=== PATIENT | male | born 1975 | race Caucasian/White ===

== ENCOUNTER → 2017-10-14 | Outpatient (CLI) | payer OTHER ==
[~2017-10-14] MED LIST: IOPAMIDOL 300MG/ML 100 ML INFUS..BTL IV ONE; IOPAMIDOL 370 MG/ML 200 ML INFUS..BTL INJ ONE; SODIUM CHLORIDE 0.9% 50ML 50 ML ONE
--- NOTE | 2017-10-14 17:35 | Diagnostic Imaging Report ---
PROCEDURE: CT scan of the chest WITH intravenous contrast, using PE protocol. TECHNIQUE: The chest was scanned utilizing a multidetector helical scanner from the lung apex through the level of the adrenal glands after the IV administration of 67 cc of Isovue 370. Coronal and sagittal multiplanar reformations were obtained. COMPARISON: None. INDICATIONS: Dyspnea FINDINGS: Exam limited by patient's large body habitus and suboptimal contrast bolus timing. Lines/tubes: None. Lungs and Airways: No filling defects in the main, right or left pulmonary arteries to their first order branches to suggest pulmonary embolism. Unable to assess more distal segmental branches. Linear opacities in the posterior left lower lobe (best seen on coronal image 103 and series 3, image 64) likely represent subsegmental atelectasis or scarring. No pulmonary nodules, masses, opacities or consolidation. Airways are clear, without endobronchial lesions. Pleura: No effusion, or pneumothorax. Heart and mediastinum: Thyroid is unremarkable. Heart size is normal. No pericardial effusion. Aorta is non-aneurysmal. Main pulmonary artery is normal in caliber, measuring 2.9 cm. Lymph nodes: No mediastinal, hilar, or axillary adenopathy. Abdomen: Limited contrast-enhanced views of the upper abdomen show diffusely decreased attenuation of the visualized liver, consistent with steatosis. Visualized spleen, pancreas, and kidneys are unremarkable. The adrenal glands are unremarkable. Bones: No aggressive lytic lesions. Plate and screw construct in the left lateral aspect of T8-T10. Soft tissues are unremarkable. IMPRESSION: 1. Limited exam, as described above. No filling defects in the main, right or left pulmonary arteries to their first order branches to suggest pulmonary embolism. 2. Subsegmental atelectasis versus scarring in the posterior left lower lobe. The lungs are otherwise clear. 3. Diffuse hepatic steatosis. Montrell Robin M.D. Dictated by: Montrell Robin M.D. on 10/14/2017 at 17:39 Electronically approved by: Montrell Robin M.D. on 10/14/2017 at 17:39
== END ==
LOC: RAD 14:20
PROVIDERS: ATTEND Family Medicine
DX: R06.00 Dyspnea, unspecified (principal); M79.604 Pain in right leg
CPT/HCPCS: 71260; 93971; Q9967

== ENCOUNTER → 2017-10-19 | Outpatient (CLI) | payer OTHER ==
--- NOTE | 2017-10-19 19:53 | Diagnostic Imaging Report ---
EXAMINATION: MRI of the lumbar spine without contrast HISTORY: Worsening low back pain radiating along the front of the right lower extremity for the last 6 months with numbness and weakness COMPARISON: None. TECHNIQUE: Sagittal T1, T2, STIR; axial T2 and proton density. FINDINGS: It is assumed that there are 5 lumbar vertebrae. Curvature/Alignment: Normal lordosis. Vertebrae: No evidence of recent fracture, infection, or neoplasm. Conus: Normal, terminating at L2 Cauda equina: Unremarkable. Lower thoracic: Mild disc bulge at T11-T12 and T12-L1 without significant stenoses. Paraspinal soft tissues: Unremarkable. Degenerative changes: No significant pulmonary disc herniations, spinal canal or foraminal stenosis. IMPRESSION: No significant degenerative changes of the lumbar spine, no disc herniations, no spinal canal or foraminal stenoses. No evidence of nerve root compression. Signed by: Dr. Radha Slaughter M.D. on 10/19/2017 7:50 PM
== END ==
LOC: MRI 14:52
PROVIDERS: ATTEND Family Medicine
DX: M79.604 Pain in right leg (principal); M54.5 Low back pain; M51.36 Other intervertebral disc degeneration, lumbar region; R20.9 Unspecified disturbances of skin sensation; M62.89 Other specified disorders of muscle
CPT/HCPCS: 72148

== ENCOUNTER → 2017-11-23 | Outpatient (CLI) | payer OTHER | LOC: CARD 13:36 | PROVIDERS: ATTEND Internal Medicine Cardiovascular Disease | DX: M79.604 Pain in right leg (principal) | CPT/HCPCS: 93926 ==

== ENCOUNTER → 2017-12-16 | Outpatient (CLI) | payer OTHER ==
--- NOTE | 2017-12-16 10:32 | Diagnostic Imaging Report ---
Right knee MRI without contrast. History: Knee pain. Decreased range of motion. Lateral pain. Comparison: None. Technique: Multiplanar multi-sequence MRI of the knee without contrast. Findings: Medial compartment: No meniscal tear, cartilage abnormality, or MCL tear. Lateral compartment: No meniscal tear or cartilage abnormality. The LCL complex is normal. Intercondylar notch: The ACL and PCL are intact. Patellofemoral compartment: There is mild articular cartilage fraying and fissuring in the patellofemoral compartment. Extensor mechanism: The quadriceps and patellar tendons are normal. Other findings: There is a joint effusion and synovitis. There is no acute fracture, subluxation or avascular necrosis. There is mild nonspecific superficial soft tissue edema. IMPRESSION: No meniscal tear, collateral ligament tear or cruciate ligament tear. Mild articular cartilage fraying and fissuring in the patellofemoral compartment. Mild nonspecific superficial soft tissue edema about the knee. Signed by: Dr. Pasquale Rico M.D. on 12/16/2017 10:29 AM
== END ==
LOC: MRI 07:20
PROVIDERS: ATTEND Family Medicine
DX: M25.561 Pain in right knee (principal)

== ENCOUNTER 2018-02-04 11:00 | Outpatient (RCR) | payer OTHER | END 2018-02-09 | LOC: PT 11:00 | PROVIDERS: ATTEND Specialist | DX: M23.92 Unspecified internal derangement of left knee (principal); M23.91 Unspecified internal derangement of right knee; M25.562 Pain in left knee; M25.561 Pain in right knee; M54.5 Low back pain; M62.81 Muscle weakness (generalized) ==

== ENCOUNTER → 2020-01-19 | Outpatient (CLI) | payer BC | LOC: US 07:21 | PROVIDERS: ATTEND Family Medicine | DX: R79.89 Other specified abnormal findings of blood chemistry (principal); R94.5 Abnormal results of liver function studies | CPT/HCPCS: 76705 ==